=== PATIENT | female | born 1950 | race Caucasian/White ===

== ENCOUNTER → 2023-07-25 | Outpatient (CLI) | payer MEDICARE, BC, SELFPAY ==
--- NOTE | 2023-07-25 14:03 | US_ITS ---
STUDY: RENAL ULTRASOUND - COMPLETE REASON FOR EXAM: Female, 73 years old. UTI TECHNIQUE: Ultrasound evaluation of the kidneys was performed with real-time and static arzate-scale imaging. COMPARISON: None. FINDINGS: RIGHT KIDNEY: Normal location of the right kidney, which is normal in size. The right kidney measures 10.3 cm x 5.1 cm x 5.2 cm. There is a normal cortex of the right kidney. The renal cortex measures 1.6 cm. There is no right renal mass or cyst. There are no right renal calculi. There is no right hydronephrosis. DISTAL RIGHT URETER: There is non-visualization of the distal right ureter. There is no demonstrated right ureterovesical junction calculus. There is a visualized right ureteral jet. LEFT KIDNEY: Normal location of the left kidney, which is normal in size. The left kidney measures 10.2 cm x 4.6 cm x 5.5 cm. There is a normal cortex of the left kidney. The renal cortex measures 1.7 cm. There is no left renal mass or cyst. There are no left renal calculi. There is no left hydronephrosis. DISTAL LEFT URETER: There is non-visualization of the distal left ureter. There is no demonstrated left ureterovesical junction calculus. There is no demonstrated left ureteral jet. BLADDER: The distended urinary bladder has a volume of 88 ml. There is a normal wall thickness of the distended urinary bladder. There is no demonstrated mass within the urinary bladder. There are no demonstrated bladder calculi. US/Kidney and Bladder IMPRESSION: Normal ultrasound of the kidneys and urinary bladder. Electronically Signed: Maik Arauz MD at 15:14 EST ,
== END | disposition home or self-care (01) ==
PROVIDERS: PCP Internal Medicine; Referring Provider Urology; Visit Provider Urology
DX: N39.0 Urinary tract infection, site not specified (principal)
CPT/HCPCS: 76770

== ENCOUNTER 2023-09-07 07:04 | Day surgery (SDC) | payer MEDICARE, BC, SELFPAY ==
--- NOTE | 2023-09-05 09:03 | EKG12_ITS ---
Test Reason : PREOP Blood Pressure : / mmHG Vent. Rate : 075 BPM Atrial Rate : 075 BPM P-R Int : 166 ms QRS Dur : 086 ms QT Int : 400 ms P-R-T Axes : 057 -09 -01 degrees QTc Int : 446 ms Normal sinus rhythm Normal ECG Confirmed by Aguila Nichole ([id number]), industrial editor JENI SQUIRES ([id number]) on 09/06/2023 6:32:54 AM Referred By: Bharti Marquez Confirmed By:Aguila Nichole
[2023-09-05 09:39] LABS: Absolute Lymphocyte Count 2.34 X10^3/uL (0.83-4.51); Absolute Neutrophil Count 6.6 X10^3/uL (2.0-7.7); Basophil# 0.05 X10^3/uL; Basophil% 0.5 % (0-1); Eosinophil# 0.25 X10^3/uL; Eosinophils% 2.5 % (0-5); Hematocrit 41.1 % (37-47); Hemoglobin 12.6 g/dL (12.0-15.0); Lymphocyte # 2.34 X10^3/ul (0.83-4.51); Lymphocyte % 23.2 % (19-41); Mean Corp Hgb Conc 30.7 g/dL (32-36); Mean Corpuscular Volume 84.9 fL (81-99); Mean Platelet Vol. 9.3 fl (6.2-12.0); Monocyte% 7.9 % (0-10); NRBC Flagged by Analyzer 0 % (0-5); Neutrophil # 6.62 X10^3/uL (2.7-7.7); Neutrophil % 65.6 % (47-70); Platelet Count 283 K/mm3 (150-450); RBC Distribution Width CV 15.2 % (11.6-14.6); RBC Distribution Width SD 46.8 fl (35.1-43.9); Red Blood Count 4.84 M/mm3 (4.2-5.4); White Blood Count 10.1 K/mm3 (4.4-11.0)
[2023-09-05 10:26] LABS: Anion Gap 2 (5-15); BUN 22 mg/dL (7-18); BUN/Creat Ratio 26.3 RATIO (10-20); Calcium,Total 9.8 mg/dL (8.5-10.1); Chloride 108 mmol/L (98-107); Creatinine, Serum 0.84 mg/dL (0.55-1.02); EST Glomerular Filtration Rate 70 mL/min (>60); Est Glom Filt Rate - Afr Amer 85 mL/min (>60); Glucose 80 mg/dL (74-106); Potassium 4.3 mmol/L (3.5-5.1); Sodium Level 140 mmol/L (136-145)
[2023-09-05 12:30] LABS: Hemoglobin A1c 5.8 % (3.8-5.6)
[2023-09-07] VITALS (7 sets, daily range): BP systolic 105–135; BP diastolic 63–93; PULSE 67–71; RESP 16; TEMP 36.1; O2SAT 92–99; BMI 44.7
[2023-09-07] MEDS: Lactated Ringers 1,000 ML 15 ML IV (07:48)
[2023-09-07 08:11] LABS: Bedside Glucose 104 mg/dL (74-106)
--- NOTE | 2023-09-07 08:30 | BLA_PTH ---
PATIENT: GEMINI SANDERSON LOC: [facility] [place][id number] AGE/SX: 73/F ROOM: RE09/07/[address]: Dr. Bharti Marquez MD : [id number] BED: DIS: 09/07/2023 SPEC #: [id number] RECD: 09/07/23 09:30 STATUS: HOMER STRONG #: [id number] RED: 09/07/23 08:[address]: Bharti Marquez DEPT: SURGICAL PATHOLOGY RECD BY: Divina Sapp ENTERED: 09/07/23 12:07 SP TYPE: BLADDER BX OTHR DR: Dr. Katrin Peng MD Tissues: Urinary bladder, NOS Procedures: Surgery Specimen Level IV HEADER OPERATION: Cysto, biopsy, Fulguration, Bladder lesion PRE-OP DIAGNOSIS: Incontinence, bladder lesion, UTI, nocturia TISSUE SUBMITTED: Bladder biopsy MICROSCOPIC DIAGNOSIS Bladder, biopsy: A fragment of urothelial mucosa with moderate chronic inflammation. Negative for malignancy. See comment. MEHDI/ 09/08/23 COMMENT Detrusor muscle is not present in the specimen. Correlation with clinical, cystoscopic findings and appropriate follow up are necessary. MICROSCOPIC DESCRIPTION Slides are reviewed. GROSS DESCRIPTION Received in fixative is one container labeled with the patient's name and designated Bladder biopsy. The specimen consists of one irregular fragment of light lin soft tissue that measures 0.2 x 0.2 x .1 cm. The specimen is totally submitted in one cassette.MEHDI/ 09/07/23 TC:3 CPT:99449
[2023-09-07] MEDS: Cefazolin 2 GM in 0.9% Normal Saline (100mL Bag) 100 ML IV (08:45)
--- NOTE | 2023-09-07 08:50 | DCINST_ITS ---
Discharge Instructions Diet Discharge Diet: No restrictions Activity Discharge Activity: Return to Normal Activity Dressing / Incision Call your doctor if you observe: Fever of 101 or Higher, Inability to urinate and Inability to have a bowel movement Follow Up Care Please Follow Up With: Bharti Marquez MD When: Follow up in the office in 1 week for biopsy results. Test Results: Test results from this visit will be discussed in further detail at your follow- up appointment, if applicable. Discharge Plan Admission Attending Provider: Bharti Marquez Primary Care Provider: Katrin Peng Discharge Orders/Prescriptions Prescriptions: New oxycodone-acetaminophen [Percocet] 5-325 mg tablet 1 tab PO Q8H PRN (Reason: pain) 2 Days Qty: 6 0RF Continued atorvastatin 20 mg tablet 20 mg PO QHS cephalexin 250 mg capsule 250 mg PO QHS alprazolam 0.5 mg tablet 0.5 mg PO BID gabapentin 300 mg capsule 600 mg PO BID albuterol sulfate [Ventolin HFA] 90 mcg/actuation HFA aerosol inhaler 2 puff INHALATION Q4H PRN PRN (Reason: wheezing) metformin 500 mg tablet 500 mg PO BID verapamil 360 mg capsule,ext rel. pellets 24 hr 360 mg PO DAILY metoprolol succinate 100 mg tablet extended release 24 hr 100 mg PO BID sertraline 100 mg tablet 100 mg PO DAILY potassium chloride 20 mEq tablet,ER particles/crystals 40 meq PO BID montelukast 10 mg tablet 10 mg PO DAILY losartan 100 mg tablet 100 mg PO DAILY olmesartan 40 mg tablet 40 mg PO DAILY Trulicity 1.5 mg/0.5 mL pen injector 1.5 mg subcut QWEEK albuterol sulfate [ProAir HFA] 90 mcg/actuation HFA aerosol inhaler 2 inh inhalation Q8H PRN (Reason: shortness of breath or wheezing) Multivitamin 50 Plus Tablet 1 tab PO DAILY cholecalciferol (vitamin D3) [Vitamin D3] 125 mcg (5,000 unit) tablet 125 mcg PO DAILY ascorbic acid (vitamin C) [Vitamin C] 500 mg tablet 500 mg PO DAILY milk thistle 500 mg capsule 1,000 mg PO DAILY Rx Instructions: give with meal/snack Gemtesa 75 mg tablet 75 mg PO DAILY Other Ambulatory Orders: 12 Lead EKG (Routine) Timeframe: [id number] Location: None Selected Ordered By: Dr. Michael Springer Referrals / Follow Up: Katrin Peng MD [Primary Care Provider] - Disposition Disposition (needs filled in before D/C Order can be placed): Home, Self Care
[2023-09-07] MEDS: Lubricating Jelly 60 GM Tube 30 GM (09:00)
--- NOTE | 2023-09-07 10:57 | OP.PCM_ITS ---
Report of Operation Date of Procedure: 09/07/23 Pre-Operative Diagnosis: Urinary tract infections, bladder lesion, mixed incont inence Post-Operative Diagnosis: Same Surgery/Procedure Performed:: Cystoscopy with bladder biopsy and fulguration Surgeon: Bharti Marquez Type of Anesthesia: MAC Specimen's removed: Bladder biopsy Estimated Blood Loss (mL): 2 cc Description of Procedure: The patient is a 73-year-old female who was evaluated with cystoscopy in the office for recurrent urinary tract infections and significant incontinence. 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 Informed consent was obtained. The patient was taken to the operating room and placed on the operating room table. Anesthesia monitored the head, neck, airway, IV access and vital signs throughout the case. Once anesthesia was appropriately administered, the patient was placed into dorsolithotomy position and was prepped and draped in usual sterile fashion. The cystoscope was inserted through the urethra under direct visualization into the urinary bladder. The same lesion was identified. No other areas of abnormality were seen and there were no foreign bodies. Flexible forceps were used for biopsy of this lesion and the Bugbee was used for fulguration for hemostatic control and tissue treatment. The patient's bladder was then emptied and the cystoscope was removed. She was awakened and taken to the recovery room in good condition. There were no complications during the procedure. Grafts/Implants Used: None Complications None Admit VTE Documentation VTE Present on Admission: Yes VTE Mechan Device Prophylaxis: SCD's VTE Pharm Prophylaxis ordered?: No Reason prophylaxis not ordered:: Treatment Not Indicated
== END 2023-09-07 10:23 | disposition home or self-care (01) ==
LOC: SDC 07:05 → AC 07:05
PROVIDERS: Anesthesiology; PCP Internal Medicine; Referring Provider Urology; Visit Provider Urology
PROC: 0TBB8ZX Excision of Bladder, Via Natural or Artificial Opening Endoscopic, Diagnostic (ICD-10-PCS; CPT 52204; principal; 2023-09-07 08:20)
DX: N32.89 Other specified disorders of bladder (principal); E11.22 Type 2 diabetes mellitus with diabetic chronic kidney disease; E11.40 Type 2 diabetes mellitus with diabetic neuropathy, unspecified; N18.30 Chronic kidney disease, stage 3 unspecified; N30.20 Other chronic cystitis without hematuria; I12.9 Hypertensive chronic kidney disease with stage 1 through stage 4 chronic kidney disease, or unspecified chronic kidney disease; N39.46 Mixed incontinence; N32.81 Overactive bladder; N76.0 Acute vaginitis; E78.5 Hyperlipidemia, unspecified; G47.33 Obstructive sleep apnea (adult) (pediatric); R35.1 Nocturia; Z79.84 Long term (current) use of oral hypoglycemic drugs; Z79.85 Long-term (current) use of injectable non-insulin antidiabetic drugs; Z79.899 Other long term (current) drug therapy; Z87.891 Personal history of nicotine dependence
CPT/HCPCS: 52204; 00910; 36415; 80048; 82962; 83036; 85025; 88305; 93005; J7120; J2405